=== PATIENT | female | born 1960 | race Two or more races ===

== ENCOUNTER 2024-01-14 12:19 | Emergency (ER) | payer MEDICARE, MEDICAID, SELFPAY ==
--- NOTE | 2024-01-14 12:40 | ED.GENADULT ---
[facility] - General Adult General Chief complaint: Anxiety Stated complaint: Anxiety, insomnia Time Seen by Provider: 01/14/24 13:27 Source: patient and RN notes reviewed Mode of arrival: ambulatory Limitations: no limitations History of Present Illness HPI narrative: This is a 63-year-old female, with a history of anxiety and depression, presenting to the emergency department for medication refill. Patient reports that she recently moved to [place] as she just her and relocated to the area from [place]. She states that she is currently on Seroquel, clonazepam, and duloxetine. She states that she is running low on her medications in his concerned that she will officially run out. She is currently on waiting list for a psychiatrist at this time however believes that it will take months for her to see a psychiatrist in his uncertain what to do. She states that she takes the clonazepam at bedtime to help her with sleeping. She denies any current increasing anxiety, suicidal ideations, homicidal ideations, visual or auditory hallucinations. Denies any other complaints or concerns at this time. MD complaint: Medication refill Relieving factors: none Exacerbating factors: none Associated symptoms: denies other symptoms Treatments prior to arrival: none Review of Systems Review of Systems: Yes all other systems are reviewed and are negative Constitutional: Constitutional: Reports [facility] Past Medical History Attestation statement: The following information was validated with the patient. Physical Exam ED Vital Signs: Vital Signs - 24 hr 01/14/24 12:41 Temperature 98.0 F Pulse Rate 88 Respiratory Rate 17 Blood Pressure 138/75 Pulse Oximetry 98 Oxygen Delivery Method Room Air BMI result Body Mass Index 27.3 Const General: cooperative, comfortable and no acute distress Orientation/consciousness: patient oriented x3 Limitations: no limitations [facility] Head: Yes normal to inspection, Yes normocephalic and Yes atraumatic Ears: hearing grossly normal bilaterally General nose exam: Normal external nose present Face and sinus: Yes normal facial exam Mouth: Normal oral and palatal mucosa present, oropharynx normal and moist mucous membranes Throat: Yes posterior oropharynx normal Eyes General: appearance normal, both eyes and all related structures Eyelids: Yes eyelids normal Conjunctivae: conjunctivae normal Sclerae: sclerae normal Pupils: Equal, round and reactive pupils present EOM: EOMs intact bilaterally Neck Neck: Yes normal visual inspection, Yes full ROM and Yes no lymphadenopathy Lymphatic: no lymphadenopathy noted Chest Chest palpation & inspection: normal inspection of the chest Resp Effort & Inspection: normal respiratory effort and able to speak in complete sentences Auscultation: clear to auscultation bilaterally Cardio Rate: regular rate Rhythm: regular rhythm Heart sounds: S1 normal heart sound present and S2 normal heart sound present GI Inspection: Yes normal to inspection Skin General skin exam: no rashes or lesions noted Trauma: no lacerations or abrasions Wounds: no wounds Neuro General: patient oriented x3 and moves all extremities Cranial nerves: Yes Equal, round and reactive pupils present Extrem General: Yes normal to inspection Right upper extremity: normal to inspection Left upper extremity: normal to inspection Right lower extremity: normal to inspection Left lower extremity: normal to inspection Course Course Course Narrative: RME performed by Rosa Prado PA-C. Patient is a 63 year old assigned female at presenting to the emergency department feeling very anxious about her medications. Patient states that she is scared she is going to run out of medications next month. Patient states that she moved here from [place] 1 month ago and doesn't have a PCP or psychiatrist yet. Patient does not want to be evaluated by crisis, she just wants guaranteed medication refills. One of these medications is 1mg Clonazepam. I explained to the patient that I am not willing to send in a large amount of Clonazepam at this time and she stated that is what she is the most worried about. Will have the patient return to the waiting room and see one of the other Emergency Department clinicians. Detailed physical exam and review of systems are deferred to the caregiver services home. Medical Decision Making Medical Decision Making MDM Narrative: This is a 63-year-old female presenting to the emergency department for medication refill. Vital signs within normal limits. [place] prescription monitoring site revealing patient has been prescribed clonazepam 1 mg once a day for several months with to prescribe hours. Last medication refill was for clonazepam 1 mg quantity 30, for 30 days. I discussed this case with my attending physician, Dr. Castro, who recommends only filling 3 days' worth of clonazepam as she needs to follow-up with her psychiatrist. I also spoke to the care team who will come and provide patient with external resources for walk-in [facility] services to help facilitate medication refill. I educated the importance of sleep hygiene techniques as she states that her anxiety worsens at nighttime. She denies any suicidal or homicidal ideations. She does not want to speak to the crisis team at this time. I discussed the importance of following up with the services provided to her by the care team. Advised that we can not refill controlled substances from the emergency room. She understands and agrees with this plan. Differential Diagnosis Differential Diagnoses: The differential diagnosis associated with the presentation includes Anxiety, depression, suicidal ideations/homicidal ideation, medication refill Admission/Observation Consideration of admission/observation: Escalation of care including admission/observation considered Discharge Plan Discharge Clinical Impression: Acute anxiety Patient Disposition: Home, Self-Care Instructions: Generalized Anxiety Disorder (ED) Additional Instructions: Your seen in the emergency department for medication refill. Klonopin is a controlled substance and we are unable to give you a month supply of Klonopin. You need to follow-up with the behavioral health services that we provided to you in the emergency room today. You can not return for a medication refill and you need to follow-up with psychiatry to refill controlled substances. If you develop any new or worsening symptoms including but not limited to chest pain, shortness of breath suicidal or homicidal ideations, please return for re-evaluation.
[2024-01-14 12:41] VITALS: BP 138/75; PULSE 88; RESP 17; TEMP 36.7; O2SAT 98; BMI 27.3
[2024-01-14 14:35] VITALS: BP 118/60; PULSE 78; RESP 16; TEMP 36.6; O2SAT 98
== END 2024-01-14 14:43 | disposition home or self-care (01) ==
PROVIDERS: Emergency Provider Emergency Medicine
DX: Z76.0 Encounter for issue of repeat prescription (principal); F41.9 Anxiety disorder, unspecified; F32.A Depression, unspecified
CPT/HCPCS: 99283; 99284

== ENCOUNTER 2024-03-18 18:11 | Emergency (ER) | payer MEDICARE, MEDICAID, SELFPAY ==
[2024-03-18 19:57] VITALS: BP 136/85; PULSE 80; RESP 16; TEMP 37.1; O2SAT 96; BMI 29.3
[2024-03-18 20:21] LABS: MANUAL DIFF FLAG NO
[2024-03-18 20:23] LABS: Basophils Percent Auto 0.2 % (0-2); Eosinophils Absolute Auto 0.2 X10*3/uL (0.0-0.4); Eosinophils Percent Auto 1.9 % (0-4); Hematocrit 44.8 % (37.0-47.0); Hemoglobin 14.3 g/dl (12.0-16.0); Imm Gran Abs Auto 0.02 X10*3/uL (0.00-0.03); Imm Gran Pct Auto 0.2 % (0.0-0.4); Lymphocytes Absolute Auto 2.5 X10*3/uL (1.2-4.9); Lymphocytes Percent Auto 26.6 % (20-40); Mean Corpuscular HGB Conc 31.9 g/dl (31.0-35.0); Mean Corpuscular Volume 87.8 fL (80.0-98.0); Mean Platelet Volume 9.1 fL (9.4-12.3); Monocytes Percent Auto 10.4 % (2-11); Neutrophils Absolute Auto 5.7 x10*3/uL (2.0-8.3); Neutrophils Percent Auto 60.7 % (45-73); Platelet Count 176 X10*3/uL (160-400); Red Cell Distribution Width 13.2 % (11.0-16.0); White Blood Count 9.4 X10*3/uL (4.8-10.8)
[2024-03-18 20:36] LABS: Appearance Urine Turbid; Bacteria Urine 2+ (None Seen); Color Urine Red; Glucose Urine UA >=1000 mg/dL (Negative); Hyaline Casts Urine 0-2 /LPF (0-2); Leukocyte Esterase Urine Moderate (2+) (Negative); Nitrite Urine Negative (Negative); PH 5.5 (5.0-9.0); RBC Urine >20 /HPF (0-2); Specific Gravity - Urine >= 1.030 (1.005-1.025); Squamous Epithelial Cell Urine 0-2 /HPF (0-2); UACC Culture Trigger YES; UMIC TRIGGER UACC YES; Urine Blood Large (3+) (Negative); Urine Ketones Negative (Negative); Urine Protein 30 (1+) mg/dL (Neg-Trace); WBC Urine >50 /HPF (0-5)
[2024-03-18 20:51] LABS: Alanine Aminotransferase 33 U/L (0-31); Albumin Level 4.3 g/dL (3.5-5.0); Alkaline Phosphatase 49 U/L (39-117); Anion Gap 13 (12-20); Aspartate Amino Transferase 26 U/L (5-31); Bilirubin Total 0.6 mg/dL (0.0-1.0); Blood Urea Nitrogen 24 mg/dL (9-16); Calcium 9.9 mg/dL (8.4-10.2); Carbon Dioxide 26 mmol/L (22-29); Chloride 105 mmol/L (96-108); Creatinine Clr Calc Pharmacy 59.8; Estimated Glomerular Filt Rate > 60; Glucose Random 154 mg/dL (60-115); Potassium 4.2 mmol/L (3.3-5.1); Sodium 140 mmol/L (135-145); Total Protein 7.1 g/dL (6.5-8.0)
[2024-03-18 21:34] VITALS: BP 131/79; PULSE 75; RESP 19; TEMP 36.7; O2SAT 97
--- NOTE | 2024-03-18 22:59 | ED_ITS ---
HPI - Female Genitourinary General Chief complaint: Urogenital-Female Stated complaint: hematuria, pain when urinating Time Seen by Provider: 03/18/24 22:45 Source: patient, RN notes reviewed and old records reviewed Mode of arrival: ambulatory Limitations: no limitations History of Present Illness HPI Narrative: 63-year-old female presents for evaluation of blood in her urine Patient reports that earlier this afternoon she noticed blood in the urine. She has had increased urinary frequency and burning with urination She has mild lower abdominal discomfort Denies any fevers, chills, flank pain Related Data Previous Rx's ?Medication ?Instructions ?Recorded clonazepam 1 mg tablet (Klonopin) 1 mg PO DAILY #3 tabs 01/14/24 duloxetine 30 mg capsule,delayed 30 mg PO DAILY #30 caps 01/14/24 release quetiapine 300 mg tablet 300 mg PO BEDTIME #30 tabs 01/14/24 cefuroxime axetil 250 mg tablet 250 mg PO Q12H #10 tabs 03/18/24 phenazopyridine 200 mg tablet 200 mg PO TID PRN pain 6 doses #6 03/18/24 (Pyridium) tabs Allergies Allergy/AdvReac Type Severity Reaction Status Date / Time No Known Allergies Allergy Verified 03/18/24 20:00 Review of Systems 2 Constitutional: Constitutional: Denies body ache(s), Denies chills and Denies fever(s) ENT: Denies sore throat Cardiovascular: Cardiovascular: Denies chest pain and Denies dyspnea Respiratory: Respiratory: Denies cough and Denies dyspnea Gastrointestinal: Gastrointestinal: Reports abdominal pain, Denies nausea and Denies vomiting Genitourinary: Genitourinary: Reports hematuria, Reports dysuria, Denies flank pain and Reports urinary urgency [facility] Social History Social History Advance Directives: No Advance Directives Information Provided: No Do you have a plan to hurt others: No Plan Physical Exam 2 Vital Signs: Vital Signs: Last Vital Signs Temp 98.1 F 03/18/24 23:01 Pulse 78 03/18/24 23:01 Resp 18 03/18/24 23:01 BP 158/84 H 03/18/24 23:01 Pulse Ox 97 03/18/24 23:01 O2 Del Method Room Air 03/18/24 23:01 BMI result Body Mass Index 29.3 Const: General: healthy appearing, comfortable, no acute distress, alert and awake Nutritional Appearance: well nourished Orientation/consciousness: p atient oriented x3 HEENT: Head: Yes normocephalic and Yes atraumatic GI: Inspection: No distended Palpation (GI): Soft to palpation, not firm, nontender, no guarding and not rigid : General: Yes no CVA tenderness Back/Spine/Pelvis: Back: no CVA tenderness Skin: General skin exam: elasticity normal Neuro: General: patient oriented x3 Cranial nerves: Yes Bilaterally intact EOM present Cognition (Neuro): normal cognition Medical Decision Making Medical Decision Making MDM Narrative: 63-year-old female presents for evaluation of classic UTI symptoms. She has no evidence of obstructive uropathy, no flank pain, negative CVA tenderness. No abdominal pain or tenderness. Vitals are stable, labs reviewed. Her UA is consistent with UTI, she has leukocyte esterase with greater than 50 white cells, 2+ bacteria as well as hematuria. Renal function is within normal limits. I do not see any indication for emergent imaging at this time. Plan to treat a simple UTI and she will follow-up outpatient providers. Return precautions given Differential Diagnosis Differential Diagnoses: The differential diagnosis associated with the presentation includes UTI Cystitis Obstructive uropathy Hematuria Bladder mass Lab Data [facility] Lab Attestation statement: I reviewed the patient's lab results. No leukocytosis or anemia. Normal platelet count. No electrolyte abnormalities. BUN was slightly elevated to 24, otherwise creatinine is within normal limits. Patient has known diabetes, her glucose is elevated to 154. No evidence of DKA 03/18/24 20:14 03/18/24 20:14 Labs: Lab Results 03/18/24 Range/Units 20:14 WBC 9.4 (4.8-10.8) X10*3/uL RBC 5.10 (4.20-5.50) X10*6/uL Hgb 14.3 (12.0-16.0) g/dl Hct 44.8 (37.0-47.0) % MCV 87.8 (80.0-98.0) fL MCH 28.0 (27.0-33.0) pg MCHC 31.9 (31.0-35.0) g/dl RDW 13.2 (11.0-16.0) % Plt Count 176 (160-400) X10*3/uL MPV 9.1 L (9.4-12.3) fL Immature Gran % (Auto) 0.2 (0.0-0.4) % Neut % (Auto) 60.7 (45-73) % Lymph % (Auto) 26.6 (20-40) % Jefferson % (Auto) 10.4 (2-11) % Eos % (Auto) 1.9 (0-4) % Baso % (Auto) 0.2 (0-2) % Lymph # (Auto) 2.5 (1.2-4.9) X10*3/uL Jefferson # (Auto) 1.0 (0.1-1.2) X10*3/uL Eos # (Auto) 0.2 (0.0-0.4) X10*3/uL Baso # (Auto) 0.0 (0.0-0.2) X10*3/uL Abs Immat Gran (auto) 0.02 (0.00-0.03) X10*3/uL Absolute Neuts (auto) 5.7 (2.0-8.3) x10*3/uL Absolute Nucleated RBC 0.000 (0.0-0.012) X10*3/uL Nucleated RBC % (auto) 0.0 (0.0-0.2) /100WBC Sodium 140 (135-145) mmol/L Potassium 4.2 (3.3-5.1) mmol/L Chloride 105 (96-108) mmol/L Carbon Dioxide 26 (22-29) mmol/L Anion Gap 13 (12-20) BUN 24 H (9-16) mg/dL Creatinine 0.85 (0.5-1.4) mg/dL Estim Creat Clear Calc 59.8 Estimated GFR > 60 Random Glucose 154 H (60-115) mg/dL Calcium 9.9 (8.4-10.2) mg/dL Total Bilirubin 0.6 (0.0-1.0) mg/dL AST 26 (5-31) U/L ALT 33 H (0-31) U/L Alkaline Phosphatase 49 (39-117) U/L Total Protein 7.1 (6.5-8.0) g/dL Albumin 4.3 (3.5-5.0) g/dL Urine Color Red A Urine Appearance Turbid Urine pH 5.5 (5.0-9.0) Ur Specific Delano >= 1.030 H (1.005-1.025) Urine Protein 30 (1+) H (Neg-Trace) mg/dL Urine Glucose (UA) >=1000 H (Negative) mg/dL Urine Ketones Negative (Negative) mg/dL Urine Blood Large (3+) H (Negative) Urine Nitrite Negative (Negative) Ur Leukocyte Esterase Moderate (2+) H (Negative) Urine RBC >20 H (0-2) /HPF Urine WBC >50 H (0-5) /HPF Ur Squamous Epith Cells 0-2 (0-2) /HPF Urine Bacteria 2+ (None Seen) Hyaline Casts 0-2 (0-2) /LPF Discharge Plan Discharge Clinical Impression: Urinary tract infection Patient Disposition: Home, Self-Care Instructions: Urinary Tract Infection in Women (ED) Additional Instructions: Take cefuroxime twice daily for the next 5 days. Use Pyridium for urinary discomfort Drink lots of fluids Follow-up with your primary doctor Prescriptions: New cefuroxime axetil 250 mg tablet 250 mg PO Q12H Qty: 10 0RF phenazopyridine [Pyridium] 200 mg tablet 200 mg PO TID PRN (Reason: pain) Qty: 6 0RF No Action clonazepam [Klonopin] 1 mg tablet 1 mg PO DAILY Qty: 3 0RF quetiapine 300 mg tablet 300 mg PO BEDTIME Qty: 30 0RF duloxetine 30 mg capsule,delayed release(DR/EC) 30 mg PO DAILY Qty: 30 0RF Print Language: Kinyarwanda
[2024-03-18 23:01] VITALS: BP 158/84; PULSE 78; RESP 18; TEMP 36.7; O2SAT 97
[2024-03-18] MEDS: cefuroxime axetiL 250 MG TABLET PO (23:19)
[2024-03-18] MEDS: Phenazopyridine HCL 200 MG TABLET PO (23:19)
[2024-03-18 23:26] VITALS: BP 158/84; PULSE 78; RESP 18; TEMP 36.7; O2SAT 97
== END 2024-03-18 23:26 | disposition home or self-care (01) ==
PROVIDERS: Nurse Practitioner Family; Emergency Provider Emergency Medicine
DX: N39.0 Urinary tract infection, site not specified (principal); R31.9 Hematuria, unspecified; R35.0 Frequency of micturition; R10.30 Lower abdominal pain, unspecified; R30.0 Dysuria
CPT/HCPCS: 36415; 80053; 81001; 85025; 87086; 87088; 87186; 99283

== ENCOUNTER 2025-10-15 14:43 | Outpatient (AMB) | payer MEDICARE, MEDICAID, SELFPAY ==
[2025-10-15 14:51] VITALS: BP 112/70; PULSE 104; RESP 16; O2SAT 96; BMI 26.0
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
--- OUTSIDE RECORDS SUMMARY | 2025-10-15 23:59 | XMS_ITS | Clinical Summary ---
Author Organization 175 [facility] Address [address] [place] [address] Phone Care Team Providers Care Beading Machine Operator Name Role Phone Tiara Phelan Primary Care Provider [phone] Allergies No known active allergies Medications bisacodyL (DULCOLAX) 5 mg EC tablet Take 2 tablets by mouth right before beginning bowel prep. See instructions provided by the office 2 tablet 5 Active lisinopriL (PRINIVIL,ZESTR IL) 20 mg tablet Take 1 tablet (20 mg total) by mouth 1 (one) time each day. 5 Active omeprazole (PriLOSEC) [address] capsule Take 2 capsules (40 mg total) by mouth 1 (one) time each day. 5 Active Jardiance 10 mg tablet Take 1 tablet (10 mg total) by mouth 1 (one) time each day. Active pioglitazone (ACTOS) 30 mg tablet Take 1 tablet (30 mg total) by mouth 1 (one) time each day. Active Mounjaro 5 mg/0.5 mL injection Inject 0.5 mL (5 mg total) under the skin every 7 (seven) days. Active clonazePAM (KlonoPIN) 0.5 mg tablet Take 1 tablet (0.5 mg total) by mouth 2 (two) times a day if needed. Active lamoTRIgine (LaMICtal) 100 mg tablet Take 1 tablet (100 mg total) by mouth 2 (two) times a day. Active DULoxetine (CYMBALTA) [address] capsule Take 1 capsule (30 mg total) by mouth 1 (one) time each day. Do not crush or chew. Active Active Problems Problem Noted Date Diagnosed Date Anxiety 08/15/2024 Bipolar disorder in full remission 08/15/2024 Major depressive disorder in full remission 06/2024 Controlled type 2 diabetes m ellitus without complication, without long-term current use of insulin 08/15/2024 Essential hypertension 08/15/2024 Mixed hyperlipidemia 08/15/2024 TBI (traumatic brain injury) 08/15/2024 Encounters Date Type Department Care Team Description 08/30/2025 Results Follow-Up Gastroenterology - [place] 175 [facility] 175 [facility] [address] [place] [phone] Rolando Chapman MD 07/19/2025 7:46 AM EDT Anesthesia Event [facility] [address] [place] [phone] Brennen Deal MD 07/19/2025 6:44 AM EDT - 07/19/2025 11:59 PM EDT Hospital Encounter [facility] [address] [place] [phone] Rolando Chapman MD Steele, Matthew G, CRNA Esophageal dysphagia Discharge Disposition: Home or Self Care from Last 3 Months Surgical History Surgery Date Site/Laterality Comments ANKLE SURGERY Left HYSTERECTOMY N/A TONSILLECTOMY N/A HAND SURGERY Bilateral BREAST LUMPECTOMY Left Medical History Medical History Date Comments Hyperlipidemia GERD (gastroesophageal reflux disease) Diabetes mellitus ([facility] V24, [facility] V28) Anxiety Depression Social History Tobacco Use Types Packs/Day Years Used Date Smoking Tobacco: Never Smokeless Tobacco: Never Tobacco Cessation:Counseling Given: Not Answered Alcohol Use Standard Drinks/Week Comments Never 0 (1 standard drink = 0.6 oz pur e alcohol) Interpersonal Safety Answer Date Record ed Physical Abuse Unrecognized value 07/19/2025 Verbal Abuse Unrecognized value 07/19/2025 Comments Unknown Sex and Gender Information Value Date Recorded Sex Assigned at Female 01/16/2025 3:43 PM EDT Legal Sex Female 11:05 AM EDT Gender Identity Female 01/16/2025 3:43 PM EDT Sexual Orientation Straight 01/16/2025 3: 57 PM EDT Last Filed Vital Signs Vital Sign Reading Time Taken Comments Blood Pressure 125/86 07/19/2025 8:22 AM EDT Pulse 90 07/19/2025 8:22 AM EDT Temperature 36.7 C (98 F) 07/19/2025 8:02 AM EDT Respiratory Rate 18 07/19/2025 8:22 AM EDT Oxygen Saturation 100% 07/19/2025 8:22 AM EDT Inhaled Oxygen Concentration - - Weight 63.5 kg (140 lb) 07/19/2025 7:08 AM EDT Height 152.4 cm (5') 07/19/2025 7:08 AM EDT Body Mass Index 27.34 07/19/2025 7:08 AM EDT Plan of Treatment Upcoming Encounters Date Type Department Care Team (Late st Contact Info) Description 12/21/2025 10:00 AM EST Office Visit Gastroenterology - [address] [phone] Barbara Bowers NP [address] [address] Health Maintenance Due Date Last Done Comments Breast Cancer Screening 1960 Colorectal Cancer Screening: Colonoscopy 1960 Diabetes: Annual Foot Exam 1972 Diabetes: Annual Retina Eye Exam 1972 Cervical Cancer Screening: Pap Smear 1983 HIV Screening 06/09/2024 Hepatitis C Screening 06/09/2024 Medicare Annual Wellness Visit 06/09/2024 Social Influencers of Health Screening 06/09/2024 Depression Screening 11/08/2024 COVID-19 Vaccine ( season) 2025 07/06/2024 Influenza Vaccine (#1) 2025 07/06/2024 Diabetes: Annual Urine Albumin-Creatinine Ratio (uACR) 08/24/2025 08/24/2024 Diabetes: Blood Sugar Control Test (HGBA1C) 09/15/2025 03/15/2025, 08/24/2024 Diabetes: Annual GFR (Glomerular Filtration Rate) 03/15/2026 03/15/2025, 08/24/2024 Hypertension/CHF/CAD Annual BMP Blood Test 03/15/2026 03/15/2025, 08/24/2024 Cholesterol Screening (Lipid Panel) 03/15/2030 03/15/2025, 03/15/2025, 08/24/2024, Additional history exists DTaP,Tdap,and Td Vaccines (2 - Td or Tdap) 08/15/2034 08/15/2024 RSV Immunization Adult Patients Completed 04/21/2024 Zoster Vaccines Completed 12/21/2024, 04/21/2024 Pneumococcal Vaccine: 50+ Years Completed 01/18/2025 HIB Vaccines Aged Out No longer eligi ble based on patient's age to complete this topic HPV Vaccines Aged Out No longer eligi ble based on patient's age to complete this topic Hepatitis A Vaccines Aged Out No long er eligible based on patient's age to complete this topic Hepatitis B Vaccines Aged Out No long er eligible based on patient's age to complete this topic IPV Vaccines Aged Out No longer eligi ble based on patient's age to complete this topic MMR Vaccines Aged Out No longer eligi ble based on patient's age to complete this topic Meningococcal ACWY Vaccine Aged Out N o longer eligible based on patient's age to complete this topic Meningococcal B Vaccine Aged Out No l onger eligible based on patient's age to complete this topic RSV Immunization Patients Under 20 months Aged Out No longer eligible based on patient's age to complete this topic Varicella Vaccines Aged Out No longer eligible based on patient's age to complete this topic Goals Goal Patient Goal Type Associated Problems Recent Progress Patient-Stated? Author LTGs (x8 visits) General Yes Chasidy Elizabeth, PT Note: Patient will be independent with HEP for maintenance of gains made in skilled physical therapy Patient will improve hip flexion, extension, and abduction strength on to >/=4- /5 for improvements in strength and stability during mobility Patient will endorse minimal to no pain following completion of ADLs / iADLs Patient will endorse being able to ambulate x60 minutes with minimal to no pain Patient will improve lumbar flexion ROM to 100% Procedures Procedure Name Priority Date/Time Associated Diagnosis Comments EGD Routine 07/19/2025 8:01 AM EDT Esophageal dysphagia TISSUE EXAM Routine 07/19/2025 7:56 AM EDT Esophageal dysphagia from Last 3 Months Results * EGD Anesthesia - MAC; [facility] END[facility]COPY (07/19/2025 8:01 AM EDT) Anatomical Region Laterality Modality Endoscopy 07/19/2025 7:50 AM EDT Impressions 07/19/2025 8:04 AM EDT - Normal examined duodenum. - Mucosal changes suspicious for gastritis. Biopsied. Recommendation: - Discharge patient to home. - Await pathology results. - Return to GI clinic. Narrative 07/19/2025 8:04 AM EDT [facility] GI Patient Name: Sheryl Cota Procedure Date: 07/19/2025 7:50 AM Date of : 1960 Age: 64 Gender: Female Note Status: Finalized Attending MD: Rolando Chapman MD, Procedure Date No Time: 07/19/2025 Procedure: Upper GI endoscopy Indications: Dysphagia Providers: Rolando Chapman MD Referring MD: Rolando Chapman MD Medicines: Propofol per Anesthesia Complications: No immediate complications. Estimated blood loss: Minimal. Estimated Blood Loss: Estimated blood loss was minimal. Procedure: Pre-Anesthesia Assessment: - Prior to the procedure, a History and Physical was performed, and patient medications and allergies were reviewed. The patient is competent. The risks and benefits of the procedure and the sedation options and risks were discussed with the patient. All questions were answered and informed consent was obtained. Patient identification and proposed procedure were verified by the physician, the nurse, the assignment desk editor and the photonics engineering technician in the pre-procedure area in the endoscopy suite. Mental Status Examination: alert and oriented. Airway Examination: normal oropharyngeal airway and neck mobility. Respiratory Examination: clear to auscultation. CV Examination: normal. Prophylactic Antibiotics: The patient does not require prophylactic antibiotics. Prior Anticoagulants: The patient has taken no anticoagulant or antiplatelet agents. ASA Grade Assessment: II - A patient with mild systemic disease. After reviewing the risks and benefits, the patient was deemed in satisfactory condition to undergo the procedure. The anesthesia plan was to use monitored anesthesia care (MAC). Immediately prior to administration of medications, the patient was re-assessed for adequacy to receive sedatives. The heart rate, respiratory rate, oxygen saturations, blood pressure, adequacy of pulmonary ventilation, and response to care were monitored throughout the procedure. The physical status of the patient was re-assessed after the procedure. After obtaining informed consent, the endoscope was passed under direct vision. Throughout the procedure, the patient's blood pressure, pulse, and oxygen saturations were monitored continuously. The Olympus Gastroscope was introduced through the mouth, and advanced to the second part of duodenum. The upper GI endoscopy was accomplished without difficulty. The patient tolerated the procedure well. Findings: The examined duodenum was normal. Diffuse mild inflammation characterized by erythema was found in the gastric body and in the gastric antrum. Biopsies were taken with a cold forceps for histology. Estimated blood loss was minimal. There is no endoscopic evidence of stenosis or stricture in the entire esophagus. A guidewire was placed and the scope was withdrawn. Dilation was performed with a Savary dilator with mild resistance at 60 Fr. Procedure Code(s): --- Professional --- 64639, Esophagogastroduodenoscopy, flexible, transoral; with insertion of guide wire followed by passage of dilator(s) through esophagus over guide wire [id number], 59, Esophagogastroduodenoscopy, flexible, transoral; with biopsy, single or multiple Diagnosis Code(s): --- Professional --- K31.89, Other diseases of stomach and duodenum R13.10, Dysphagia, unspecified CPT copyright 2020 [employer]. All rights reserved. The codes documented in this report are preliminary and upon vegetable cook review may be revised to meet current compliance requirements. Rolando Chapman MD 07/19/2025 8:04:37 AM This report has been signed electronically.Rolando Chapman MD Number of Addenda: 0 Note Initiated On: 07/19/2025 7:50 AM Scope In: Scope Out: Endoscopy Department at [facility] - [address] [place] [id number] Procedure Note Rolando Chapman MD - 07/19/2025 [facility] GI Patient Name: Sheryl Cota Procedure Date: 07/19/2025 7:50 AM Date of : 1960 Age: 64 Gender: Female Note Status: Finalized Attending MD: Rolando Chapman MD, Procedure Date No Time: 07/19/2025 Procedure: Upper GI endoscopy Indications: Dysphagia Providers: Rolando Chapman MD Referring MD: Rolando Chapman MD Medicines: Propofol per Anesthesia Complications: No immediate complications. Estimated blood loss: Minimal. Estimated Blood Loss: Estimated blood loss was minimal. Procedure: Pre-Anesthesia Assessment: - Prior to the procedure, a History and Physicalwas performed, and patient medications and allergieswere reviewed. The patient is competent. The risks and benefits of the procedure and the sedation optionsand risks were discussed with the patient. Allquestions were answered and informed consent was obtained. Patient identification and proposed procedure were verified by the physician, the nurse, theanesthetist and the photonics engineering technician in the pre-procedure area in the endoscopy suite. Mental Status Examination: alertand oriented. Airway Examination: normal oropharyngeal airway and neck mobility. Respiratory Examination: clear to auscultation. CV Examination: normal. Prophylactic Antibiotics: The patient does notrequire prophylactic antibiotics. Prior Anticoagulants: The patient has taken no anticoagulant or antiplatelet agents. ASA Grade Assessment: II - A patient withmild systemic disease. After reviewing the risks and benefits, the patient was deemed in satisfactory condition to undergo the procedure. The anesthesia plan was to use monitored anesthesia care (MAC). Immediately prior to administration of medications, the patient was re-assessed for adequacy to receive sedatives. The heart rate, respiratory rate, oxygen saturations, blood pressure, adequacy of pulmonary ventilation, and response to care were monitored throughout the procedure. The physical status ofthe patient was re-assessed after the procedure. After obtaining informed consent, the endoscope was passed under direct vision. Throughout theprocedure, the patient's blood pressure, pulse, and oxygen saturations were monitored continuously. TheOlympus Gastroscope was introduced through the mouth, and advanced to the second part of duodenum. The upperGI endoscopy was accomplished without difficulty. The patient tolerated the procedure well. Findings: The examined duodenum was normal. Diffuse mild inflammation characterized by erythema was found in the gastric body and in the gastric antrum. Biopsies were taken with a cold forceps for histology. Estimated blood loss was minimal. There is no endoscopic evidence of stenosis or stricture in the entire esophagus. A guidewire was placed and the scope was withdrawn. Dilation was performed with a Savary dilator with mildresistance at 60 Fr. Procedure Code(s): --- Professional --- 64692, Esophagogastroduodenoscopy, flexible, transoral; with insertion of guide wire followed by passage of dilator(s) through esophagus over guidewire [id number], 59, Esophagogastroduodenoscopy, flexible, transoral; with biopsy, single or multiple Diagnosis Code(s): --- Professional --- K31.89, Other diseases of stomach and duodenum R13.10, Dysphagia, unspecified CPT copyright 2020 [employer]. All rights reserved. The codes documented in this report are preliminary and upon vegetable cook reviewmay be revised to meet current compliance requirements. Rolando Chapman MD 07/19/2025 8:04:37 AM This report has been signed electronically.Rolando Chapman MD Number of Addenda: 0 Note Initiated On: 07/19/2025 7:50 AM Scope In: Scope Out: Endoscopy Department at [facility] - [address] [place] [phone] IMPRESSION: - Normal examined duodenum. - Mucosal changes suspicious for gastritis.Biopsied. Recommendation: - Discharge patient to home. - Await pathology results. - Return to GI clinic. Rolando Chapman MD GI~PROCEDURE ORDERABLES Fin al Result * Tissue exam (07/19/2025 7:56 AM EDT) Final Diagnosis A. Stomach, gastric biopsy: - Gastric oxyntic and antral/body junction mucosa with no specific pathologic changes. - No Helicobacter pylori organisms are morphologically identified. 07/20/2025 10:00 AM EDT [facility] at 1000 EDT Gross Description A. Stomach, gastric biopsy: Labeled stomach gastric . Received in formalin are four irregular roper mucosal tissue fragments, ranging from 0.1 cm to 0.4 cm, which are wrapped in paper and submitted in toto in one cassette, four pieces, multiple levels on one slide. REID 07/20/2025 10:00 AM EDT [facility] Disclaimer Unless otherwise specified, all tissue is 10% NB formalin fixed and paraffin embedded. 07/20/2025 10:00 AM EDT [facility] Tissue Stomach structure / Unknown 07/19/2025 7:56 AM EDT 07/19/2025 11:29 AM EDT us Rolando Chapman MD LAB PATHOLOGY ORDERABLES Fi nal Result [facility] [address] [place] [address], [place] [phone] from Last 3 Months Insurance [employer] MEDICARE ADVANTAGE Care Teams Beading Machine Operator Relationship Specialty Start Date End Date Tiara Phelan PA [address] [place] [address] PCP - General 08/15/24
--- OUTSIDE RECORDS SUMMARY | 2025-10-15 23:59 | XMS_ITS | Encounter Summary ---
Author Organization [facility] Address [address] [place] [address] Care Team Providers Care Soft Crab Shedder Name Role Phone Tiara Phelan Primary Care Provider [phone] Encounter Details Date Type Department Care Team ([facility] st Contact Info) Description 08/30/2025 Results Follow-Up Gastroenterology - [place] 175 [facility] 175 [facility] [address] [place] [phone] Rolando Chapman MD 299 [facility] [address] [place] [address] Social History Tobacco Use Types Packs/Day Years Used Date Smoking Tobacco: Never Smokeless Tobacco: Never Alcohol Use Standard Drinks/Week Comments Never 0 [...] Orientation Straight 01/16/2025 3: 57 PM EDT documented as of this encounter Progress Notes * Rolando Chapman MD - 08/30/2025 7:22 PM EDT The biopsies of your stomach are within normal limits. Please follow up in order to discuss these findings with the referring physician at [facility] gastroenterology clinic. I would like to personally thank you for allowing us to take care of you. Please don't hesitate to call us for any questions or concerns. RegardsCrystal MD Board Certified Gastroenterology and Internal Medicine Transplant Hepatology [facility] documented in this encounter Plan of Treatment Upcoming Encounters Date Type Department Care Team (Late st Contact Info) Description 12/21/2025 10:00 AM EST Office Visit Gastroenterology - [address] [place] [address] [phone] Barbara Bowers, DAFNE [address] [address] documented as of this encounter Goals Goal Patient Goal Type Associated Problems Recent Progress Patient-Stated? Author LTGs (x8 visits) General Yes Chasidy Elizabeth PT Note: Patient will be independent with [...] will improve lumbar flexion ROM to 100% documented as of this encounter Visit Diagnoses Not on filedocumented in this encounter Care Teams Soft Crab Shedder Relationship Specialty Start Date End Date Tiara Phelan PA [address] [place] [address] PCP - General 08/15/24 documented as of this encounter
== END 2025-10-15 15:18 | disposition home or self-care (01) ==
LOC: HO.HSM 14:43
PROVIDERS: Visit Provider Nurse Practitioner
DX: R51.9 Headache, unspecified (principal); R41.3 Other amnesia
CPT/HCPCS: 99204

== ENCOUNTER → 2025-10-15 14:43 | Outpatient (BNVA) | payer MEDICARE, MEDICAID, SELFPAY | PROVIDERS: Visit Provider Nurse Practitioner | DX: R41.3 Other amnesia (principal); R51.9 Headache, unspecified; Z87.820 Personal history of traumatic brain injury | CPT/HCPCS: 99202 ==